=== PATIENT | female | born 1995 | race Caucasian/White ===

== ENCOUNTER 2016-11-24 14:48 | Emergency (ER) | payer MEDICAID, OTHER ==
[~2016-11-24] VITALS: Ht 167.6 cm; Wt 84.5 kg
[~2016-11-24 14:48] MED LIST: AMO500 PO; GUAI118L94 PO; LORA-186 PO; NAPR-688 PO; NYQUIL; UDROBDM PO
[2016-11-24 14:53] VITALS: Ht 167.6 cm; Wt 84.5 kg
[2016-11-24] MEDS ORDERED: SOD CHLORIDE 0.9% 1,000 ML IV STA (15:21)
[2016-11-24] MEDS ORDERED: KETOROLAC 30 MG INJ IV STA (15:21)
[2016-11-24 16:06] LABS: BASOPHILS % 0.1 % (0.0-2.0); EOSINOPHILS # 0.1 10^3/ul (0.0-0.5); EOSINOPHILS % 0.8 % (0.0-7.0); HEMATOCRIT 36.1 % (37.0-47.0); HEMOGLOBIN 12.2 g/dl (12.0-16.0); LYMPHOCYTES % 6.6 % (15.0-51.0); MEAN CORPUSCULAR HGB CONC 33.8 g/dl (32.0-37.0); MEAN PLATELET VOLUME 9.8 fl (7.4-10.4); MONOCYTES % 6.7 % (0.0-11.0); NEUTROPHIL # 12.3 10^3/ul (1.6-7.5); NEUTROPHILS % 85.3 % (39.0-77.0); PLATELET COUNT 332 10^3/UL (140-415); RED CELL DISTRIBUTION WIDTH 13.7 % (11.5-14.5); WHITE BLOOD COUNT 14.4 10^3/ul (4.8-10.8)
[2016-11-24 16:25] LABS: ALBUMIN 4.6 g/dl (3.3-4.9); ALBUMIN/GLOBULIN RATIO 1.24; BILIRUBIN,INDIRECT 0.5 mg/dl (0-1.1); BILIRUBIN,TOTAL 0.5 mg/dl (0.2-1.3); CALCIUM 9.3 mg/dl (8.4-10.2); CREATININE 0.62 mg/dl (0.44-1.00); POTASSIUM 3.7 mmol/L (3.5-5.1); TOTAL PROTEIN 8.3 g/dl (6.1-8.1)
--- NOTE | 2016-11-24 16:26 | ERD ---
ER Documentation Chief Complaint Date/Time DATE: 11/24/16 TIME: 16:23 Chief Complaint 8/10 throat lynda/swelling x 2 days HPI This is a very pleasant 21-year-old female with a past medical history of asthma presents to the emergency department complaining of a sore throat for the past 3 days. She indicates she has been unable to tolerate oral intake as it hurts to swallow. 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 She indicates that she had a fever yesterday of 101 and has not taken any antipyretics. She denies any frequency urgency or dysuria. She denies a productive or nonproductive cough. She denies any recent travel. She denies any abdominal pain. She has not experience any hemoptysis hematemesis or melanotic stools. She denies any swelling of her tongue or lips. ROS All systems reviewed and are negative except as per history of present illness. Medications Home Meds Active Scripts Amoxicillin* (Amoxicillin*) 500 Mg Cap, 500 MG PO TID for 10 Days, CAP Prov:OMAR TERRAZAS DO 02/11/16 Naproxen* (Naproxen*) 500 Mg Tablet, 500 MG PO BID, #20 TAB Prov:OMAR TERRAZAS DO 02/11/16 Guaifenesin-Dextromethorphan* (Robitussin* DM) 100MG/10MG/5ML Syrup, 10 ML PO Q4H Y for COUGH for 4 Days, ML Prov:CARTER MACK CAST IRON DIPPER 08/29/15 Guaifenesin-Codeine Phosphate* (Guaifenesin* with Codeine Liq) 120 Ml Liquid, 5 ML PO QHS for COUGH, #30 ML Prov:MIKE TOVAR NP 10/22/14 Loratadine* (Claritin*) 10 Mg Tablet, 10 MG PO DAILY, #30 TAB Prov:MIKE TOVAR [employer]PER 10/22/14 Reported Medications [Nyquil] No Conflict Check 03/23/12 Allergies Allergies: Coded Allergies: No Known Allergy (Unverified , 11/24/16) PMhx/Soc History of Surgery: No Anesthesia Reaction: No Hx Neurological Disorder: No Hx Cardiac Disorders: No Hx Psychiatric Problems: No Hx Miscellaneous Medical Probl: No Hx Alcohol Use: No Hx Substance Use: No Hx Tobacco Use: No Physical Exam Vitals Vital Signs Date Time Temp Pulse Resp B/P Pulse Ox O2 Delivery O2 Flow Rate FiO2 11/24/16 14:53 99.1 83 18 129/74 99 Physical Exam Constitutional:Well-developed. Well-nourished. HEENT:Normocephalic. Atraumatic.Pupils were equal round reactive to light. Dry mucous membranes. Erythremia both tonsils more prominent on the right with a right tonsillar exudates. Uvula midline. No angioedema. No macroglossia. No brawny induration. No trismus. No pooling of secretions within the oropharynx. Neck: No nuchal rigidity. Right anterior tender cervical lymphadenopathy. No posterior cervical spine tenderness or step-offs. Respiratory: Not using accessory muscles of respiration.Lungs were clear to auscultation bilaterally. No rhonchi. No rales. No wheezing. No stridor. Cardiovascular: Regular rate regular rhythm.No murmurs. No rubs were appreciated.S1, S2 normal. Distal pulses are palpable 2+ bilaterally. GI: Abdomen was soft. Nontender. Non Distended. No pulsatile abdominal masses or bruits. No rebound. No guarding. Bowel sounds were present and normal. Muscle skeletal: Full range of motion of both the upper and lower extremities bilaterally.Normal muscle tone.No assymetrical calf tenderness or swelling. Skin: No petechia, no purpura. No lesions on the palms or the soles of the feet. No maculopapular rash. NEURO: Patient was alert, awake, orientated x3.No facial droop. Gait observed and normal with no ataxia.Speech had regular rate and rhythm. No focal neurological deficits. Result Diagram: 11/24/16 1550 11/24/16 1550 Results 24 hrs Laboratory Tests Test 11/24/16 15:50 White Blood Count 14.410^3/ul Red Blood Count 4.2010^6/ul Hemoglobin 12.2g/dl Hematocrit 36.1% Mean Corpuscular Volume 86.0fl Mean Corpuscular Hemoglobin 29.0pg Mean Corpuscular Hemoglobin Concent 33.8g/dl Red Cell Distribution Width 13.7% Platelet Count 56860^3/UL Mean Platelet Volume 9.8fl Neutrophils % 85.3% Lymphocytes % 6.6% Monocytes % 6.7% Eosinophils % 0.8% Basophils % 0.1% Nucleated Red Blood Cells % 0.0/100WBC Neutrophils # 12.310^3/ul Lymphocytes # 1.010^3/ul Monocytes # 1.010^3/ul Eosinophils # 0.110^3/ul Basophils # 0.010^3/ul Nucleated Red Blood Cells # 0.010^3/ul Sodium Level 140mmol/L Potassium Level 3.7mmol/L Chloride Level 102mmol/L Carbon Dioxide Level 26mmol/L Anion Gap 16 Blood Urea Nitrogen 5mg/dl Creatinine 0.62mg/dl Glucose Level 94mg/dl Calcium Level 9.3mg/dl Total Bilirubin 0.5mg/dl Direct Bilirubin 0.00mg/dl Indirect Bilirubin 0.5mg/dl Aspartate Amino Transf (AST/SGOT) 14IU/L Alanine Aminotransferase (ALT/SGPT) 25IU/L Alkaline Phosphatase 104IU/L Total Protein 8.3g/dl Albumin 4.6g/dl Globulin 3.70g/dl Albumin/Globulin Ratio 1.24 Monoscreen Negative Current Medications Medications (Trade) Dose Ordered Sig/Lorri Route PRN Reason Start Time Stop Time Status Last Admin Dose Admin Sodium Chloride (NS) 1,000 ml @ 1,000 mls/hr Q1H STAT IV 11/24/16 15:21 11/24/16 16:20 DC 11/24/16 15:59 Ketorolac Tromethamine (Toradol) 30 mg ONCE STAT IV 11/24/16 15:21 11/24/16 15:25 DC 11/24/16 15:59 Diphenhydramine HCl (Benadryl) 50 mg ONCE ONCE IV 11/24/16 17:00 11/24/16 17:04 DC 11/24/16 17:16 Procedures/MDM This is a very pleasant 21-year-old female that presented to the emergency department with 3 of the 4 center criteria suggestive of strep pharyngitis. The patient clinical dehydration and did receive IV fluids and Toradol for analgesic control. Monospot was negative. The patient was able to tolerate oral intake and I did feel she can be safely discharged with antibiotics which included amoxicillin. She was also given Motrin for analgesic control. There is no physical exam findings to suggest Nikolas's angina, peritonsillar abscess or retropharyngeal abscess. After the patient had been given Toradol she did break out in a pruritic rash that was localized to her face. She did not complain of any difficulty breathing actually stated her pain had significantly resolved and she felt comfortable swallowing. The patient had no angioedema no macroglossia with no signs of angioedema or anaphylactic shock. She was given IV Benadryl with complete resolution of the pruritus. The patient was discharged home in fair condition. They were instructed to return to the emergency department at any time if there was any worsening of their condition. The patient stated they would follow up with their PCP in the next 24-48 hours to initiate a suitable medication regimen under the care of their PCP as well as to allow their PCP to monitor any drug reactions. The patient was discharged home with prescriptions after they gave informed consent to the new medication. They were also fully informed by myself on the adverse effects and adverse drug interactions in order to provide adequate safeguards to prevent possible adverse reactions to medications. Departure Diagnosis: Primary Impression: Acute pharyngitis Pharyngitis/tonsillitis etiology: streptococcus Qualified Code: J02.0 - Acute streptococcal pharyngitis Condition: Serious TRINIDADWINIFREDSEBAS Nov 24, 2016 16:26
[2016-11-24] MEDS ORDERED: DIPHENHYDRAMINE 50 MG INJ IV ONE (17:00)
[2016-11-24] MEDS ORDERED: AMO500 PO (17:31)
[2016-11-24] MEDS ORDERED: IBUP800T25 PO (17:31)
== END 2016-11-24 18:50 | disposition home or self-care (01) ==
LOC: FTE 14:48
DX: J02.0 Streptococcal pharyngitis (principal); J45.909 Unspecified asthma, uncomplicated
CPT/HCPCS: 80053; 85025; 86308; 96374; 96375; J1200; J1885; J7030; Z7502